=== PATIENT | male | born 1975 | race Caucasian/White ===

== ENCOUNTER 2019-08-12 17:06 | Emergency (ER) | payer OTHER ==
[~2019-08-12] VITALS: Ht 177.8 cm; Wt 98.0 kg
[2019-08-12 17:14] VITALS: BP 161/100
--- NOTE | 2019-08-12 17:40 | PHYS DOC ---
Past Medical History Past Medical History: No Pertinent History (CHRIS GHOTRA DO) Additional Past Surgical Histo: R hand surgery (CHRIS GHOTRA DO) Smoking Status: Current Every Day Smoker Alcohol Use: Rarely (CHRIS GHOTRA DO) General Adult EDM: Chief Complaint: INSECT BITE HPI: HPI: Patient is a 44-year-old male who presents with what he says is a spider bite in his right antecubital area. He went to a clinic earlier today and they said he needed to come here because it needed more attention than they could provide. He states been going on for a couple of days now. He denies any fever chills or sweats. He has noticed that there is a red streak moving up towards his right axilla. [] (CHRIS GHOTRA DO) Review of Systems: Review of Systems: Constitutional: Denies fever or chills. [] Eyes: Denies change in visual acuity. [] HENT: Denies nasal congestion or sore throat. [] Respiratory: Denies cough or shortness of breath. [] Cardiovascular: Denies chest pain or edema. [] GI: Denies abdominal pain, nausea, vomiting, bloody stools or diarrhea. [] : Denies dysuria. [] Musculoskeletal: Denies back pain or joint pain. [] Integument: Per HPI [] Neurologic: Denies headache, focal weakness or sensory changes. [] Endocrine: Denies polyuria or polydipsia. [] Lymphatic: Denies swollen glands. [] Psychiatric: Denies depression or anxiety. [] (CHRIS GHOTRA DO) Heart Score: Risk Factors: Risk Factors: DM, Current or recent (<one month) smoker, HTN, HLP, family history of CAD, obesity. Risk Scores: Score 0 - 3: 2.5% MACE over next 6 weeks - Discharge Home Score 4 - 6: 20.3% MACE over next 6 weeks - Admit for Clinical Observation Score 7 - 10: 72.7% MACE over next 6 weeks - Early Invasive Strategies (CHRIS GHTORA DO) Allergies: Allergies: Allergies Coded Allergies Type Severity Reaction Last Updated Verified aspirin Allergy Unknown 08/12/19 Yes (CHRIS GHOTRA DO) Physical Exam: PE: Constitutional: Well developed, well nourished, mild distress, non-toxic appearance. [] Cardiovascular:Heart rate regular rhythm, no murmur [] Lungs & Thorax: Bilateral breath sounds clear to auscultation [] Abdomen: Bowel sounds normal, soft, no tenderness, no masses, no pulsatile masses. [] Skin: There is a 5 cm x 4 cm abscess in the right antecubital area that has a central necrotic area is tender and indurated with surrounding erythema there is some streaking redness towards his right axilla [] Back: No tenderness, no CVA tenderness. [] Extremities: No tenderness, no cyanosis, no clubbing, ROM intact, no edema. [] Neurologic: Alert and oriented X 3, normal motor function, normal sensory function, no focal deficits noted. [] Psychologic: Affect normal, judgement normal, mood normal. [] (CHRIS GHOTRA DO) Current Patient Data: Vital Signs: Vital Signs Date Time Temp Pulse Resp B/P (MAP) Pulse Ox O2 Delivery O2 Flow Rate FiO2 //20 17:14 98.7 102 20 161/100 (120) 97 Room Air 98.7 (CHRIS GHOTRA DO) EKG: EKG: [] (CHRIS GHOTRA DO) Radiology/Procedures: Radiology/Procedures: [] (CHRIS GHOTRA DO) Radiology/Procedures: Indication: abscess Procedure: The patient was positioned appropriately. Local anesthesia was 1% lidocaine. An 18 gauge needle was inserted into the center of the abscess site and a small amount of dark bloody material was expressed. The site was noted to be indurated and nonfluctuant. The patient tolerated the procedure well. Complications: none. (MARIANO ORTIZ APRN) Course & Med Decision Making: Course & Med Decision Making Pertinent Labs and Imaging studies reviewed. (See chart for details) [Procedure: I&D (CHRIS GHOTRA DO) Dragon Disclaimer: Dragon Disclaimer: This electronic medical record was generated, in whole or in part, using a voice recognition dictation system. (CHRIS GHOTRA DO) Departure Departure Impression: Primary Impression: Abscess of right upper extremity Disposition: HOME, SELF-CARE Condition: IMPROVED Referrals: NO PCP (PCP) Patient Instructions: Abscess, Abscess, Care After Additional Instructions: Fill the prescriptions and use as directed. Take tylenol or ibuprofen as needed for pain. Apply warm, moist, compresses to the site 4x a day and as needed for comfort. Return to the emergency department with any new or concerning symptoms or if fever develops. Scripts Cephalexin (KEFLEX) 500 Mg Capsule 500 MG PO QID for 7 Days, #28 CAP 0 Refills Prov: MARIANO ORTIZ APRN 08/12/19 Sulfamethoxazole/Trimethoprim (BACTRIM DS TABLET) 1 Each Tablet 1 TAB PO BID for 7 Days, #14 TAB 0 Refills Prov: MARIANO ORTIZ APRN 08/12/19 Justicifation of Admission Dx: Justifications for Admission: Justification of Admission Dx: No (CHRIS GHOTRA DO) CHRIS GHOTRA DO Aug 12, 2019 17:40 MARIANO ORTIZ APRN Aug 12, 2019 18:41
[2019-08-12] MEDS ORDERED: LIDOCAINE 1% Multi-Dose 20 ML VIAL. INJ ONE (17:45)
[2019-08-12] MEDS ORDERED: SULF1TAB24 PO (18:40)
[2019-08-12] MEDS ORDERED: CEPH-264 PO (18:40)
== END 2019-08-12 18:50 | disposition home or self-care (01) ==
LOC: ER 17:06
DX: L02.413 Cutaneous abscess of right upper limb (principal); L53.9 Erythematous condition, unspecified; F17.200 Nicotine dependence, unspecified, uncomplicated; Z98.890 Other specified postprocedural states; Z88.6 Allergy status to analgesic agent
CPT/HCPCS: 10060; 99283; J3490